=== PATIENT | male | born 1955 | race African-American/Black ===

== ENCOUNTER 2018-09-24 15:02 | Emergency (ER) | payer OTHER ==
[~2018-09-24] VITALS: Ht 165.1 cm; Wt 68.0 kg
[2018-09-24] MEDS ORDERED: BAYER ASPIRIN E81 MG PO (15:28)
[2018-09-24] MEDS ORDERED: ATORVASTATIN CA80 MG PO (15:29)
[2018-09-24 16:02] LABS: GFR > 60 ML/MIN (>=60 (CALC)); GFR FOR AFR.AMER. > 60 ML/MIN (>=60 (CALC)); HEMATOCRIT 38.8 % (39.0-50.0); HEMOGLOBIN 12.1 g/dl (14.0-18.0); IMMATURE GRANULOCYTES 0.3 % (0.0-5.0); MEAN CELL VOLUME 92.2 fL CALC (80.0-100.0); MEAN CORPUSCULAR HGB 28.7 pG CALC (26.0-32.0); MEAN CORPUSCULAR HGB CONC 31.2 g/L CALC (32.0-36.0); NEUT# 4.39 thou/uL (1.82-7.42); RED BLOOD COUNT 4.21 mill/uL (4.70-6.10); RED CELL DISTRI WIDTH 14.3 % (11.5-15.5)
[2018-09-24 16:21] LABS: ANION GAP 12 (6-22 (CALC)); BUN 14 mg/dL (8-23); BUN/CREATININE RATIO 27 (12-20 (CALC)); CARBON DIOXIDE 26 mmol/l (22-30); CHLORIDE 106 mmol/l (95-108); CREATININE 0.5 mg/dL (0.7-1.3); GFR > 60 ML/MIN (>=60 (CALC)); GFR FOR AFR.AMER. > 60 ML/MIN (>=60 (CALC)); POTASSIUM 4.1 mmol/l (3.5-5.1); SODIUM 139 mmol/l (137-146)
[2018-09-24] MEDS ORDERED: OMNI-PAC300 MG PO (17:42)
[2018-09-24] MEDS ORDERED: BACTRIM DS1 TAB PO (17:42)
[2018-09-24] MEDS ORDERED: OFLOXACIN0.3 % OD (17:42)
[2018-09-24 18:00] VITALS: BP 142/80
== END 2018-09-24 18:00 | disposition home or self-care (01) | DRG 603 ==
LOC: ED 15:02
PROVIDERS: Family Medicine
DX: L03.213 Periorbital cellulitis (principal)
CPT/HCPCS: Q9967